=== PATIENT | female | born 1995 | race Caucasian/White ===

== ENCOUNTER 2023-05-06 14:11 | Outpatient (CLI) | payer OTHER | END 2023-05-06 15:32 | disposition home or self-care (01) | LOC: NST 14:11 | PROVIDERS: ATTEND Obstetrics & Gynecology Maternal & Fetal Medicine | DX: Z34.83 Encounter for supervision of other normal pregnancy, third trimester (principal) ==

== ENCOUNTER 2023-06-05 12:56 | Outpatient (CLI) | payer OTHER | END 2023-06-05 13:50 | disposition home or self-care (01) | LOC: NST 12:56 | PROVIDERS: ATTEND Obstetrics & Gynecology Gynecology | DX: Z34.83 Encounter for supervision of other normal pregnancy, third trimester (principal) ==

== ENCOUNTER 2025-08-14 11:14 | Outpatient (CLI) | payer OTHER ==
[~2025-08-14 11:14] MED LIST: KETO10TA2 PO; OXYC1TAB9 PO; PRENATAL + DHA1 EAC1
== END 2025-08-14 11:58 | disposition home or self-care (01) ==
LOC: NST 11:14
PROVIDERS: ATTEND Obstetrics & Gynecology Maternal & Fetal Medicine
DX: Z34.82 Encounter for supervision of other normal pregnancy, second trimester (principal)